=== PATIENT | female | born 2005 | race Caucasian/White ===

== ENCOUNTER 2023-09-26 13:13 | Emergency (ER) | payer BC, SELFPAY ==
--- NOTE | ~2023-09-26 | CT_ITS ---
EXAMINATION: CT SOFT TISSUE NECK WITH CONTRAST CLINICAL INFORMATION: hemoptysis and swelling on the right side of the neck COMPARISON: None. TECHNIQUE: Following the administration of 60 mL of Omnipaque 350 intravenous contrast, helical imaging was performed in the axial plane with generation of coronal and sagittal reformatted images. This CT examination was performed using dose optimization techniques as appropriate, variously including the following: *Automated exposure control. *Adjustment of mA and/or kV according to patient size (this includes techniques or standardized protocols for targeted exams where dose is matched to indication/reason for exam; i.e. extremities or head). *Use of iterative reconstruction technique. DLP: 11/13/2007 mGy-cm. FINDINGS: Small volume adenoidal tonsillar hyperplasia within the midline nasopharynx. The paranasal sinuses and mastoid air cells are well aerated. The temporomandibular joints are normal. The oral cavity is normal. Prominence of the bilateral palatine tonsils, presumably reactive. The right palatine tonsil appears slightly more prominent, which may in part be due to rightward deviation of the uvula in contiguity with the right palatine tonsil. Lingual tonsillar hyperplasia along the base of tongue eccentric to the right partially effacing the vallecula. The larynx is unremarkable. The submandibular and parotid glands are normal. Punctate coarse calcification within the left thyroid lobe. Symmetric prominence of the bilateral level 2A lymph nodes measuring up to 2.0 cm in long axis on the left and 1.6 cm long axis on the right and 2.2 cm long axis, presumably reactive. The partially visualized lung apices are clear. Small volume anterior mediastinal soft tissue, presumably thymic hyperplasia. Normal opacification of the major neck vessels. The imaged portions of the brain parenchyma are unremarkable. Osseous thinning along the bilateral sigmoid plates with suspected dehiscence in contiguity with several mastoid air cells that can be correlated for pulsatile tinnitus. CT/CT soft tissue neck w IV con IMPRESSION: 1. No soft tissue swelling in the right neck, as clinically queried. 2. Several enlarged symmetric bilateral level 2A and left level 1B lymph nodes without otherwise morphologically suspicious features, presumably reactive. 3. Osseous thinning along the bilateral sigmoid plates with suspected dehiscence in contiguity with several mastoid air cells that can be correlated for pulsatile tinnitus.
--- NOTE | ~2023-09-26 | XR_ITS ---
EXAMINATION: XR CHEST CLINICAL INFORMATION: Pain COMPARISON: None available. TECHNIQUE: 2 views of the chest were obtained. FINDINGS: No significant abnormality is noted involving the heart, lungs, mediastinum, bony thorax or soft tissues. XR/XR chest 2V IMPRESSION: Unremarkable examination.
[2023-09-26 13:38] VITALS: BP 116/72; PULSE 98; RESP 16; TEMP 36.6; O2SAT 99; BMI 22.9
--- NOTE | 2023-09-26 13:39 | ED_ITS ---
HPI - General Adult General Chief complaint: General Medical Stated complaint: Vomiting Blood Time Seen by Provider: 09/26/23 18:32 Source: patient and family ( Mother) Mode of arrival: ambulatory Limitations: no limitations History of Present Illness HPI narrative: 18-year-old female otherwise healthy presented with her mother for concern of 3 times of spitting blood over the past 3 days, patient was evaluated add urgent care last week for coughing and chest pain and right-sided neck swelling, patient overall feels generalized weakness, no coughing, no fever, no chills, no lower extremity swelling or tenderness, no recent prolonged immobilization, no recent travel or long car rides, no hormonal therapy or OCP , no recent surgery, no sick contacts , no night sweating, no loss of weight. Patient had mono infection last year and she stated ever since she has not the same and has an appointment with ENT in December. Related Data Allergies Allergy/AdvReac Type Severity Reaction Status Date / Time nitrofurantoin Allergy Vomiting Verified 09/26/23 13:41 [From Macrobid] peach Allergy Swelling Verified 09/26/23 13:41 Review of Systems 2 Review of Systems: all other systems are reviewed and are negative Constitutional: Reports as per HPI and Reports no additional constitutional complaints Eyes: Reports as per HPI and Reports no additional eye complaints Reports system reviewed and no additional complaints, except as documented Cardiovascular: Reports as per HPI and Reports no additional cardiovascular complaints Respiratory: Reports as per HPI and Reports no additional respiratory complaints Gastrointestinal: Reports as per HPI and Reports no additional gastrointestinal complaints Genitourinary: Reports no additional female genitourinary complaints Musculoskeletal: Reports no additional musculoskeletal complaints Skin/Breast: Reports system reviewed and no additional complaints, except as docu Psychiatric: Reports no additional psychiatric complaints Endocrine: Reports no additional endocrine complaints Hematologic/Lymphatic: Reports no additional hematologic/lymphatic complaints Allergic/Immunologic: Reports no additional allergic/immunologic complaints Reports system reviewed and no additional complaints, except as documented and Reports Abnormal speech present [facility] Social History Social History Smoked in Last 30 Days: Yes Use of substances other than those prescribed or required for medical reasons: Yes Substance Use Type: Marijuana Advance Directives: No Physical Exam ED Vital Signs: Vital Signs - 24 hr 09/26/23 13:38 09/26/23 18:51 09/26/23 19:50 Temperature 97.9 F 98.7 F 98.5 F Pulse Rate 98 72 86 Respiratory Rate 16 16 16 Blood Pressure 116/72 109/60 113/67 Pulse Oximetry 99 98 99 Oxygen Delivery Method Room Air Room Air Room Air BMI result Body Mass Index 22.9 Vital signs have been reviewed and appear to be correct. Blood pressure elevated. Heart rate normal. Respiratory rate normal. Temperature normal. Oxygen saturation normal. Appearance: Alert. Oriented X3. No acute distress. Head: Normal external exam. Normocephalic. Atraumatic. No Lee signs noted. No raccoon eyes noted Eyes: PERRLA. EOMI. Conjunctiva and sclera normal. Eyelids normal. ENT: TM's Normal. Pharynx normal. Uvula midline. Moist mucous membranes. No trismus noted. No drooling noted. No muffled voice noted. Neck: Normal inspection. Neck supple. FROM. No adenopathy. Thyroid Normal. No meningeal signs. No neck mass noted. CVS: Normal heart rate and rhythm. Heart sound normal. No murmurs noted. Pulses normal throughout. Respiratory: No respiratory distress. Painless inspiration. Breath sounds normal. No wheezes/rales/rhonchi noted. Chest nontender. No accessory muscle usage noted or decreased air movement noted. Abdomen: Soft and nontender. Bowel sounds normal in all 4 quadrants. No distention noted. No organomegaly noted. No visible injury noted. Back: No CVA tenderness. Full range of motion noted. Skin: Skin warm and dry. Normal skin color. Normal skin turgor. No rashes/lesions/lacerations noted. Extremities: No lower extremity edema. Extremities exhibit normal range of motion. Extremities nontender. Neuro: Oriented X 3. Cranial nerve exam: II-XII are grossly intact No motor deficit. No sensory deficit. Reflexes normal. Course Course Course Narrative: RME- 18 year old female presents for evaluation of shortness of breath, cough. She reports spitting up blood. She reports a history of anemia and POTS. She is not on contraception. She reports currently being on her menstrual cycle Reevaluation(s) Reevaluation #1: 18-year-old female otherwise healthy came in with hemoptysis after clearing her throat type 3 over the past 3 days, Otherwise no obvious bleeding disorder, found to have no coagulopathy, no thrombocytopenia ENT exam is unremarkable, no risk for pulmonary embolism with low value of D-dimer and normal vital signs with no hypoxia or tachycardia. TB is extremely unlikely since no sick contacts or recent travel, no loss wait and night sweats, and unremarkable chest x-ray, Soft tissue CT shows no acute pathology. Patient was instructed to return if recurrence of bleeding. Time: 20:33 Medications Administered Discontinued Medications Generic Name Dose Route Start Last Admin Trade Name Freq PRN Reason Stop Dose Admin Iohexol 100 ml 09/26/23 19:21 09/26/23 19:21 Iohexol 350 Mg/Ml 100 Ml Infus..Btl IV 09/26/23 19:22 60 ml ONCE ONE Administration Medical Decision Making Differential Diagnosis Differential Diagnoses: The differential diagnosis associated with the presentation includes ( Upper respiratory viral infection, strep pharyngitis, pulmonary embolism, pneumonia, coagulopathy, thrombocytopenia, severe anemia, electrolyte derangement , soft tissue tumor.) Admission/Observation Consideration of admission/observation: Escalation of care including admission/observation considered Lab Data MDM Lab Attestation statement: I reviewed the patient's lab results. 09/26/23 13:58 09/26/23 13:58 Labs: Lab Results 09/26/23 Range/Units 13:58 WBC 6.4 (4.8-10.8) X10*3/uL RBC 4.74 (4.20-5.50) X10*6/uL Hgb 12.6 (12.0-16.0) g/dl Hct 39.6 (37.0-47.0) % MCV 83.5 (80.0-98.0) fL MCH 26.6 L (27.0-33.0) pg MCHC 31.8 (31.0-35.0) g/dl RDW 15.9 (11.0-16.0) % Plt Count 363 (160-400) X10*3/uL MPV 10.1 (9.4-12.3) fL Immature Gran % (Auto) 0.2 (0.0-0.4) % Neut % (Auto) 58.0 (45-73) % Lymph % (Auto) 31.8 (20-40) % Nobles % (Auto) 8.1 (2-11) % Eos % (Auto) 1.4 (0-4) % Baso % (Auto) 0.5 (0-2) % Lymph # (Auto) 2.0 (1.2-4.9) X10*3/uL Nobles # (Auto) 0.5 (0.1-1.2) X10*3/uL Eos # (Auto) 0.1 (0.0-0.4) X10*3/uL Baso # (Auto) 0.0 (0.0-0.2) X10*3/uL Abs Immat Gran (auto) 0.01 (0.00-0.03) X10*3/uL Absolute Neuts (auto) 3.7 (2.0-8.3) x10*3/uL Absolute Nucleated RBC 0.000 (0.0-0.012) X10*3/uL Nucleated RBC % (auto) 0.0 (0.0-0.2) /100WBC PT 12.2 (11.1-13.3) SEC INR 1.0 (0.9-1.1) D-Dimer High Sensitivty 177 NG/ML Sodium 137 (135-145) mmol/L Potassium 4.0 (3.3-5.1) mmol/L Chloride 103 (96-108) mmol/L Carbon Dioxide 26 (22-29) mmol/L Anion Gap 12 (12-20) BUN 8 L (9-16) mg/dL Creatinine 0.82 (0.5-1.4) mg/dL Estim Creat Clear Calc 82.5 Estimated GFR > 60 Random Glucose 93 (60-115) mg/dL Calcium 9.6 (8.4-10.2) mg/dL Total Bilirubin 0.8 (0.0-1.0) mg/dL AST 15 (5-31) U/L ALT 11 (0-31) U/L Alkaline Phosphatase 77 (39-117) U/L Total Protein 8.0 (6.5-8.0) g/dL Albumin 4.5 (3.5-5.0) g/dL Lipase 26 (8-78) U/L Beta HCG, Quant < 2 mIU/mL Influenza Type A (PCR) NEGATIVE (Negative) Influenza Type B (PCR) NEGATIVE (Negative) RSV RNA Qual (PCR) NEGATIVE (Negative) SARS-CoV-2 RNA (RT-PCR) NEGATIVE (Negative) S. pyogenes GrpA CAIN Negative (Negative) Independent Interpretation I performed an independent interpretation of an: EKG ( Normal sinus rhythm at 72 beats per minute, normal intervals, no ST-T changes.), Plain X-Ray ( Chest: Unremarkable examination) and CT Scan ( soft tissue neck CT:1. No soft tissue swelling in the right neck, as clinically queried. 2. Several enlarged symmetric bilateral level 2A and left level 1B lymph nodes without otherwise morphologically suspicious features, presumably reactive. 3. Osseous thinning along the bilateral sigmoid aishwarya) Radiology Impression Discussion of test interpretation with radiology: I have reviewed the radiologist's reading. Discharge Plan Discharge Clinical Impression: Spitting blood Patient Disposition: Home, Self-Care Instructions: Hemoptysis (ED) Referrals: [facility] [Primary Care Provider] - Print Language: Mongolian
[2023-09-26 14:06] LABS: MANUAL DIFF FLAG NO
[2023-09-26 14:12] LABS: Basophils Percent Auto 0.5 % (0-2); Eosinophils Absolute Auto 0.1 X10*3/uL (0.0-0.4); Eosinophils Percent Auto 1.4 % (0-4); Hematocrit 39.6 % (37.0-47.0); Hemoglobin 12.6 g/dl (12.0-16.0); Imm Gran Abs Auto 0.01 X10*3/uL (0.00-0.03); Imm Gran Pct Auto 0.2 % (0.0-0.4); Lymphocytes Percent Auto 31.8 % (20-40); Mean Corpuscular HGB Conc 31.8 g/dl (31.0-35.0); Mean Corpuscular Hemoglobin 26.6 pg (27.0-33.0); Mean Corpuscular Volume 83.5 fL (80.0-98.0); Mean Platelet Volume 10.1 fL (9.4-12.3); Monocytes Absolute Auto 0.5 X10*3/uL (0.1-1.2); Monocytes Percent Auto 8.1 % (2-11); Neutrophils Absolute Auto 3.7 x10*3/uL (2.0-8.3); Platelet Count 363 X10*3/uL (160-400); Red Blood Count 4.74 X10*6/uL (4.20-5.50); Red Cell Distribution Width 15.9 % (11.0-16.0); White Blood Count 6.4 X10*3/uL (4.8-10.8)
[2023-09-26 14:18] LABS: Prothrombin Time 12.2 SEC (11.1-13.3)
[2023-09-26 14:25] LABS: Alanine Aminotransferase 11 U/L (0-31); Albumin Level 4.5 g/dL (3.5-5.0); Alkaline Phosphatase 77 U/L (39-117); Anion Gap 12 (12-20); Aspartate Amino Transferase 15 U/L (5-31); Bilirubin Total 0.8 mg/dL (0.0-1.0); Blood Urea Nitrogen 8 mg/dL (9-16); Calcium 9.6 mg/dL (8.4-10.2); Carbon Dioxide 26 mmol/L (22-29); Chloride 103 mmol/L (96-108); Creatinine Clr Calc Pharmacy 82.5; Estimated Glomerular Filt Rate > 60; Glucose Random 93 mg/dL (60-115); Lipase 26 U/L (8-78); Sodium 137 mmol/L (135-145)
[2023-09-26 14:31] LABS: IDNOW Serial# 08D9AD1C; Strep A Nucleic Acid Negative (Negative)
[2023-09-26 14:32] LABS: HCG Quantitative < 2 mIU/mL
[2023-09-26 14:51] LABS: Influenza A PCR NEGATIVE (Negative); Influenza B PCR NEGATIVE (Negative); Resp Syncy Virus RNA Qual PCR NEGATIVE (Negative); SARS COV2 PCR INHOUSE NEGATIVE (Negative)
[2023-09-26 18:51] VITALS: BP 109/60; PULSE 72; RESP 16; TEMP 37.1; O2SAT 98
[2023-09-26 18:54] LABS: D Dimer High Sensitivity 177 NG/ML
--- NOTE | 2023-09-26 18:54 | ECG_ITS ---
Test Reason : VOMITING Blood Pressure : / mmHG Vent. Rate : 072 BPM Atrial Rate : 072 BPM P-R Int : 116 ms QRS Dur : 072 ms QT Int : 398 ms P-R-T Axes : 023 052 031 degrees QTc Int : 435 ms Artifact in tracing Normal sinus rhythm Normal ECG No previous ECGs available Referred By: Tess Damon Electronically Signed By:CYRUS RIVERA
--- NOTE | 2023-09-26 19:08 | PC.NURSE ---
pt a&o x4, pleasant, calm, and cooperative. 20G IV placed to RAC. denies pain. pt awaiting CT scan. visitor at bedside. call price within reach. plan of care ongoing.
[2023-09-26] MEDS: iohexoL 350 MG/ML 100 ML INFUS..BTL IV (19:21)
[2023-09-26 19:50] VITALS: BP 113/67; PULSE 86; RESP 16; TEMP 36.9; O2SAT 99
--- NOTE | 2023-09-26 19:51 | MHC.EDTECH ---
PATIENT EKG TAKEN AND WAS READ BY PROVIDER ,2000 ROUNDING AND VITALS TAKEN ,PT TAKING A NAP ,PATIENT BOYFRIEND AT BEDSIDE ,CALL [facility] WITHIN PATIENT REACH .
[2023-09-26 20:58] VITALS: BP 113/67; PULSE 86; RESP 16; TEMP 36.9; O2SAT 99
== END 2023-09-26 21:07 | disposition home or self-care (01) ==
PROVIDERS: Physician Assistant; Emergency Provider Emergency Medicine; PCP Nurse Practitioner Adult Health
DX: R04.2 Hemoptysis (principal); Z03.818 Encounter for observation for suspected exposure to other biological agents ruled out
CPT/HCPCS: 0241U; 36415; 70491; 71046; 80053; 83690; 84702; 85025; 85379; 85610; 87651; 93005; 99284; Q9967

== ENCOUNTER → 2023-09-26 18:54 | Outpatient (BNV) | payer BC, SELFPAY | PROVIDERS: Emergency Provider Emergency Medicine; PCP Nurse Practitioner Adult Health; Visit Provider Internal Medicine | DX: R11.10 Vomiting, unspecified (principal) | CPT/HCPCS: 93010 ==